=== PATIENT | male | born 1990 | race Two or more races ===

== ENCOUNTER 2017-03-17 15:29 | Emergency (ER) | payer OTHER ==
[2017-03-17 15:37] VITALS: BP 134/85; PULSE 102; TEMP 98.8; BMI 22.4
--- NOTE | 2017-03-17 15:50 | PDOC ---
History of Present Illness <Rebeca Dc - Last Filed: 03/17/17 16:48> - History of Present Illness Initial Comments: 03/17/17 16:04 The patient is a 26 year old male, with a significant past medical history, who presents to the emergency department with lower back pain since last night. The patient states he was lifting a gate in a squatted position when he felt a pull in his lower back. He reports immediately lying on the floor in pain and states he has been wearing his mothers back brace since. He reports the brace helps him stand from sitting, however, doesnt offer much more relief than that. He also reports mild pain to his hips, bilaterally, with ambulating, however, denies radiation of pain to his lower extremities. He denies numbness and/or tingling to his bilateral lower extremities. He denies urinary or fecal incontinence. He denies use of NSAIDs or pain medication. He states he works nights and sleeps during the day, but reports he could not sleep today secondary to pain. He reports he has work tonight and does not want narcotics at this time. He denies chest pain, shortness of breath, headache and dizziness. He denies fever, chills, nausea, vomit, diarrhea and constipation. He denies dysuria, frequency, urgency and hematuria. Allergies: NKDA <Bell Li - Last Filed: 03/17/17 18:04> - General Chief Complaint: Back Pain Stated Complaint: LOW BACK PAIN Time Seen by Provider: 03/17/17 15:48 Past History - Past Medical History Other medical history: DENIES - Psycho/Social/Smoking Cessation Hx Anxiety: No Suicidal Ideation: No Smoking History: Current every day smoker Have you smoked in the past 12 months: Yes Number of Cigarettes Smoked Daily: 1 Information on smoking cessation initiated: Yes 'Breaking Loose' booklet given: 03/17/17 <Rebeca Dc - Last Filed: 03/17/17 16:48> <Bell Li - Last Filed: 03/17/17 18:04> - Past Medical History Allergies/Adverse Reactions: Allergies Allergy/AdvReac Type Severity Reaction Status Date / Time No Known Allergies Allergy Verified 03/17/17 15:31 Home Medications: Ambulatory Orders Ibuprofen [Motrin -] 600 mg PO TID PRN #21 tablet 03/17/17 Methocarbamol [Robaxin -] 500 mg PO BID PRN #14 tablet 03/17/17 Review of Systems - Review of Systems Able to Perform ROS?: Yes Comments:: 03/17/17 16:06 GENERAL/CONSTITUTIONAL: No fever or chills. No weakness. HEAD, EYES, EARS, NOSE AND THROAT: No change in vision. No ear pain or discharge. No sore throat. CARDIOVASCULAR: No chest pain or shortness of breath. RESPIRATORY: No cough, wheezing, or hemoptysis. GASTROINTESTINAL: No nausea, vomiting, diarrhea or constipation. GENITOURINARY: No dysuria, frequency, or change in urination. MUSCULOSKELETAL: (+) low back pain. No joint or muscle swelling. No neck pain. SKIN: No rash NEUROLOGIC: No headache, vertigo, loss of consciousness, or change in strength/ sensation. ENDOCRINE: No increased thirst. No abnormal weight change. HEMATOLOGIC/LYMPHATIC: No anemia, easy bleeding, or history of blood clots. ALLERGIC/IMMUNOLOGIC: No hives or skin allergy. <Bell Li - Last Filed: 03/17/17 18:04> *Physical Exam - Vital Signs Last Vital Signs Temp Pulse Resp BP Pulse Ox 98.8 F 102 H 18 134/85 97 03/17/17 15:30 03/17/17 15:30 03/17/17 15:30 03/17/17 15:30 03/17/17 15:30 <Rebeca Dc - Last Filed: 03/17/17 16:48> - Vital Signs Last Vital Signs Temp Pulse Resp BP Pulse Ox 98.8 F 102 H 18 134/85 97 03/17/17 15:30 03/17/17 15:30 03/17/17 15:30 03/17/17 15:30 03/17/17 15:30 - Physical Exam Comments: 03/17/17 16:06 GENERAL: Awake, alert, and fully oriented, in no acute distress HEAD: No signs of trauma EYES: PERRLA, EOMI, sclera anicteric, conjunctiva clear ENT: Auricles normal inspection, hearing grossly normal, nares patent, oropharynx clear without exudates. Moist mucosa NECK: Normal ROM, supple, no lymphadenopathy, JVD, or masses LUNGS: Breath sounds equal, clear to auscultation bilaterally. No wheezes, and no crackles HEART: Regular rate and rhythm, normal S1 and S2, no murmurs, rubs or gallops ABDOMEN: Soft, nontender, normoactive bowel sounds. No guarding, no rebound. No masses EXTREMITIES: Normal range of motion, no edema. No clubbing or cyanosis. No cords, erythema, or tenderness NEUROLOGICAL: Cranial nerves II through XII grossly intact. Normal speech, normal gait SKIN: Warm, Dry, normal turgor, no rashes or lesions noted. <Bell Li - Last Filed: 03/17/17 18:04> ED Treatment Course - RADIOLOGY Radiograph Interpretation: 03/17/17 18:04 EXAM: Lumbar spine x-ray was read by Keith Ferguson MD 03/17/2017 17:58 EST M.D HISTORY:Back pain after lifting heavy object COMPARISON: None. FINDINGS:AP and lateral views of the lumbar spine demonstrate normal alignment. The pedicles are intact. No disc space narrowing is seen. No acute osseous abnormality is seen. IMPRESSION: Negative study <Bell Li - Last Filed: 03/17/17 18:04> *DC/Admit/Observation/Transfer - Discharge Dispostion Admit: No <Rebeca Dc - Last Filed: 03/17/17 16:48> - Attestations Scribe Attestion: 03/17/17 16:08 Documentation prepared by Bell Li, acting as medical malpractice paralegal for Rebeca Dc MD, <Bell Li - Last Filed: 03/17/17 18:04> Diagnosis at time of Disposition: Low back pain Qualifiers: Chronicity: acute Back pain laterality: bilateral Sciatica presence: without sciatica Qualified Code(s): M54.5 - Low back pain - Discharge Dispostion Disposition: HOME Condition at time of disposition: Stable - Prescriptions Prescriptions: Ibuprofen [Motrin -] 600 mg PO TID PRN #21 tablet PRN Reason: Pain Methocarbamol [Robaxin -] 500 mg PO BID PRN #14 tablet PRN Reason: Muscle Spasms - Patient Instructions Printed Discharge Instructions: DI for Back Strain or Sprain
[2017-03-17] MEDS ORDERED: IBUPROFEN 600 MG TABLET (FP) PO ONE ×2 (16:00→16:05)
== END 2017-03-17 18:00 | disposition home or self-care (01) ==
LOC: FER 15:29
DX: M54.5 Low back pain (principal); F17.210 Nicotine dependence, cigarettes, uncomplicated; X58.XXXA Exposure to other specified factors, initial encounter; Y93.89 Activity, other specified; Y92.9 Unspecified place or not applicable
CPT/HCPCS: 72100-TC; 99283-25